=== PATIENT | female | born 1990 | race Caucasian/White ===

== ENCOUNTER 2021-07-18 12:55 | Emergency (ER) | payer OTHER ==
[~2021-07-18 12:55] MED LIST: MEDROL 4MG DOSEP4 MG PO; NORCO 5-325 TA1 EACH PO
[2021-07-18 15:53] LABS: HCT 44.6 % (37.0-47.0); HGB 14.8 g/dL (12.5-16.0)
[2021-07-18 18:31] LABS: BILIRUBIN NEGATIVE (NEGATIVE); BLOOD 3+ Ery/uL (NEGATIVE); GLUCOSE (U) NORMAL (NORMAL); LEUKOCYTES 2+ Leu/uL (NEGATIVE); NITRITE POSITIVE (NEGATIVE); PROTEIN 2+ mg/dL (NEGATIVE)
[2021-07-18 18:38] LABS: CLARITY CLOUDY (CLEAR); COLOR RED (YELLOW)
[2021-07-18 18:41] LABS: BACTERIA TRACE; URINARY RBC TNTC; URINARY WBC RARE
== END 2021-07-18 19:03 | disposition home or self-care (01) ==
LOC: FER 12:55
PROVIDERS: Emergency Medicine; Physician Assistant
DX: N92.0 Excessive and frequent menstruation with regular cycle (principal); F17.210 Nicotine dependence, cigarettes, uncomplicated
CPT/HCPCS: 36415; 81001; 85014; 85018; 99284